=== PATIENT | male | born 1985 | race Two or more races ===

== ENCOUNTER 2025-07-19 10:03 | Emergency (ER) | payer OTHER ==
[~2025-07-19] VITALS: Ht 175.3 cm; Wt 72.6 kg
[2025-07-19] MEDS ORDERED: SEROQUEL50 MG PO (10:33)
[2025-07-19] MEDS ORDERED: WELLBUTRIN SR100 MG PO (10:33)
[2025-07-19] MEDS ORDERED: METHYLPREDNISOLONE SOD SUCC 125 MG VIAL IV ONE (11:15)
[2025-07-19] MEDS ORDERED: IPRATROPIUM BROMIDE 0.5 MG/2.5 ML AMPUL.NEB IH SCH (11:15)
[2025-07-19] MEDS ORDERED: LEVALBUTEROL HCL 1.25 MG/3 ML SOLUTION IH SCH (11:15)
[2025-07-19] MEDS ORDERED: LEVALBUTEROL HCL 1.25 MG/3 ML SOLUTION IH ONE (11:19)
[2025-07-19] MEDS ORDERED: IPRATROPIUM BROMIDE 0.5 MG/2.5 ML AMPUL.NEB IH ONE (11:19)
[2025-07-19] MEDS ORDERED: METHYLPREDNISOLONE SOD SUCC 125 MG VIAL ONE ×2 (11:23→11:31)
[2025-07-19 13:31] LABS: COVID-19 AG NEGATIVE (NEGATIVE)
== END 2025-07-19 15:00 | disposition home or self-care (01) ==
LOC: ER 10:04
PROVIDERS: General Practice
DX: J45.909 Unspecified asthma, uncomplicated (principal); R06.02 Shortness of breath; Z20.822 Contact with and (suspected) exposure to COVID-19